=== PATIENT | male | born 1960 | race Caucasian/White ===

== ENCOUNTER 2017-12-20 13:41 | Inpatient (IN) | payer MEDICARE ==
[2017-12-20 13:41] VITALS: BMI 51.5
[2017-12-20] MEDS ORDERED: Albuterol-Ipratrop 3 mg / 0.5 (3 ml) UD INH STA ×2 (14:22→23:13)
[2017-12-20] MEDS ORDERED: Albuterol-Ipratrop 3 mg / 0.5 (3 ml) UD ONE (15:19)
[2017-12-20] MEDS ORDERED: Magnesium Sulfate 1 gm in D5W 1 GM/100 ML BAG IVPB ONE ×2 (15:19→15:35)
[2017-12-20 15:21] LABS: EOS # 0.1 K/uL (0.0-0.7); MONO # 0.4 K/uL (0.0-0.8)
[2017-12-20 15:23] LABS: B-TYPE NATRIURETIC PEPTIDE 7180 pg/mL (0-900)
[2017-12-20] MEDS: Magnesium Sulfate 1 gm in D5W 1 GM/100 ML BAG IVPB SCH (15:23)
[2017-12-20 15:25] LABS: ALB/GLOB RATIO 1.1 (1.0-2.1); ALBUMIN 3.2 g/dL (3.5-5.0); ALT/SGPT 32 U/L (21-72); AST/SGOT 30 U/L (17-59); BLOOD UREA NITROGEN 26 mg/dL (9-20); CALCIUM 8.3 mg/dl (8.6-10.4); GFR NON-AFRICAN AMERICAN > 60
[2017-12-20 15:45] LABS: BASO % 0.6 % (0.0-2.0); MONO % 8.5 % (0.0-10.0)
[2017-12-20 15:47] LABS: LYMPH % 19.2 % (20.0-40.0); MEAN CORPUSCULAR HEMOGLOBIN 22.8 pg (27.0-31.0); MEAN CORPUSCULAR HGB CONC 28.1 g/dL (33.0-37.0); MEAN PLATELET VOLUME 9.4 fL (7.2-11.7); NEUT % 69.2 % (50.0-75.0); RBC 6.17 Mil/uL (4.40-5.90); RED CELL DISTRIBUTION WIDTH 23.5 % (11.5-14.5); WHITE BLOOD COUNT 5.3 K/uL (4.8-10.8)
[2017-12-20 15:48] LABS: EOS % 2.5 % (0.0-4.0); MEAN CELL VOLUME 80.8 fL (80.0-94.0); NEUT # 3.6 K/uL (1.8-7.0); NRBC % 0.2 % (0.0-2.0)
--- NOTE | 2017-12-20 16:04 | RAD ---
HISTORY: cough r/o infiltrate COMPARISON: Chest x-ray performed 10/11/17 TECHNIQUE: Chest, one view. FINDINGS: Examination limited by habitus. LUNGS: Mild pulmonary venous congestion. No focal consolidation. Please note that chest x-ray has limited sensitivity for the detection of pulmonary masses. PLEURA: No significant pleural effusion identified. No definite pneumothorax . CARDIOVASCULAR: Cardiomegaly with CTR approximately 23.3/33.5. OSSEOUS STRUCTURES: No acute osseous abnormality identified. VISUALIZED UPPER ABDOMEN: Unremarkable. OTHER FINDINGS: None. IMPRESSION: Limited study. Marked cardiomegaly. Mild pulmonary venous congestion.
[2017-12-20] MEDS ORDERED: Iodixanol 320 mg/ml 150 ml Bottle IV ONE (16:21)
--- NOTE | 2017-12-20 17:15 | CT ---
Date of service: 12/20/2017 CTA chest PE protocol Indication: Shortness of breath, rule out PE Technique: Contiguous axial images were obtained through the chest with intravenous contrast enhancement. Sagittal and coronal reconstructions were generated and reviewed. This CT exam was performed using 1 or more of the following dose reduction techniques: Automated exposure control, adjustment of the MAA and/or kV according to patient size, and/or use of iterative reconstruction technique. IV contrast: Radiation dose (DLP): 591.23 MGy-cm. Comparison: Chest x-ray performed earlier the same day Findings: Examination markedly limited by habitus. Visualized portions of the inferior thyroid gland appear unremarkable. The mediastinal and hilar vascular structures appear within normal limits. Cardiomegaly. Correlate for pulmonary artery hypertension as the pulmonary artery is enlarged with main pulmonary artery trunk measuring approximately 5 cm in transverse dimension. There is suboptimal opacification of the pulmonary arteries limiting evaluation for pulmonary embolus. Given this limitation, there are no visible intraluminal filling defects within the central pulmonary arteries to suggest central pulmonary embolism. No focal consolidation. No pleural effusion. No pneumothorax. Limited visualized portions of the upper abdomen appear grossly unremarkable. Degenerative changes of the spine. Impression: Examination limited by habitus. Cardiomegaly. Correlate for pulmonary artery hypertension as the pulmonary artery is enlarged with main pulmonary artery trunk measuring approximately 5 cm in transverse dimension. There is suboptimal opacification of the pulmonary arteries limiting evaluation for pulmonary embolus. Given this limitation, there are no visible intraluminal filling defects within the central pulmonary arteries to suggest central pulmonary embolism.
--- NOTE | 2017-12-20 18:12 | C.PDOC ---
History Of Present Illness 57-year-old male, PMHx includes COPD, CHF, presents to the emergency department with complaints of productive cough with yellow sputum ongoing x3 days associated with chills and increased swelling in both feet. Patient also has a subjective fever. Patient denies any nausea/vomiting, chest pain, back pain or any other associated symptoms. Of note, pt is home O2 dependent. Chief Complaint (Nursing): Shortness Of Breath History Per: Patient, Family History/Exam Limitations: no limitations Onset/Duration Of Symptoms: Days Current Symptoms Are (Timing): Still Present Past Medical History Reviewed: Historical Data, Nursing Documentation, Vital Signs Vital Signs: Last Vital Signs Temp 98.1 F 12/20/17 14:01 Pulse 59 L 12/20/17 14:01 Resp 21 12/20/17 14:01 BP 107/55 L 12/20/17 14:01 Pulse Ox 93 L 12/20/17 14:01 - Medical History PMH: Asthma, Colonic Polyps, Gastritis, HTN, Sleep Apnea (Uses CPAP) Denies: Chronic Kidney Disease Surgical History: Endoscopy - [facility] Procedures CORONAR ARTERIOGR-2 CATH (12/16/13) ENDOSC POLYPECTOMY OF LG INTEST (04/10/14) ESOPHAGOGASTRODUODENOSCOPY [EGD] W/CLOSED BIOPSY (04/10/14) LEFT HEART CARDIAC CATH (12/16/13) LT HEART ANGIOCARDIOGRAM (12/16/13) Family History: States: No Known Family Hx - Social History Hx Tobacco Use: No Hx Alcohol Use: Yes Hx Substance Use: No - Immunization History Hx Tetanus Toxoid Vaccination: No Hx Influenza Vaccination: Yes Hx Pneumococcal Vaccination: Yes Review Of Systems Constitutional: Positive for: Fever Respiratory: Positive for: Cough, Shortness of Breath, Sputum Gastrointestinal: Negative for: Vomiting Musculoskeletal: Negative for: Back Pain Neurological: Negative for: Weakness, Numbness, Headache, Dizziness Physical Exam - Physical Exam Appears: Non-toxic, No Acute Distress, Other (Morbidly obese) Skin: Warm, Dry, No Rash Head: Atraumatic, Normacephalic Eye(s): bilateral: Normal Inspection, PERRL, EOMI Nose: Normal Oral Mucosa: Moist Lips: Normal Appearing Neck: Normal ROM Cardiovascular: Rhythm Regular, Murmur (systolic) Respiratory: No Accessory Muscle Use, Rales (bases), Wheezing (B/L) Gastrointestinal/Abdominal: Soft, No Tenderness Back: Normal Inspection Extremity: Pedal Edema (B/L, chronic), Other (chronic venous stasis changes) Pulses: Left Dorsalis Pedis: Normal, Right Dorsalis Pedis: Normal Neurological/Psych: Oriented x3, Normal Speech ED Course And Treatment - Laboratory Results Result Diagrams: 12/20/17 14:50 12/20/17 14:50 ECG Rhythm: R BBB ECG Interpretation: No Acute Changes Interpretation Of ECG: Right Bolivar Deviation Rate From EC O2 Sat by Pulse Oximetry: 93 Medical Decision Making Medical Decision Making: CT Chest, EKG, Bloodwork and chest x-ray ordered and reviewed. Pt treated with Lasix, Mag-Sulfate, Solumedrol and Duoneb. Case discussed with Dr Sylvester, who admits for Dr. Cespedes, states he will admit pt under his service. Disposition - Disposition Disposition Time: 17:30 Condition: STABLE - Clinical Impression Clinical Impression: CHF exacerbation, COPD exacerbation - Scribe Statement The provider has reviewed the documentation as recorded by the Scribe (Nabeel Campos) Provider Attestation: All medical record entries made by the Scribe were at my direction and personally dictated by me. I have reviewed the chart and agree that the record accurately reflects my personal performance of the history, physical exam, medical decision making, and the department course for this patient. I have also personally directed, reviewed, and agree with the discharge instructions and disposition.
[2017-12-20] MEDS ORDERED: Moxifloxacin IV 400mg/250ml NS 400 MG/250 ML BAG IVPB SCH (20:15)
[2017-12-20 20:39] LABS: ABG ALLEN TEST POS; ARTERIAL BLOOD GAS HCO3 22.8 mmol/L (21-28); ARTERIAL BLOOD GAS O2 SAT 89.3 % (95-98); ARTERIAL BLOOD GAS PCO2 70 mm/Hg (35-45); ARTERIAL BLOOD GAS PO2 60 mm/Hg (80-100); ARTERIAL BLOOD GAS TCO2 29.5 mmol/L (22-28)
[2017-12-20] MEDS ORDERED: Moxifloxacin IV 400mg/250ml NS 400 MG/250 ML BAG IVPB ONE (21:49)
[2017-12-20] MEDS: Moxifloxacin IV 400mg/250ml NS 400 MG/250 ML BAG IVPB SCH (22:14)
[2017-12-21] MEDS ORDERED: MethylPREDNISolone 40 mg Vial ONE (00:18)
[2017-12-21 01:06] LABS: ARTERIAL BLOOD GAS HCO3 32.7 mmol/L (21-28); ARTERIAL BLOOD GAS HEMOGLOBIN 14.4 g/dL (11.7-17.4); ARTERIAL BLOOD GAS PCO2 85 mm/Hg (35-45); ARTERIAL BLOOD GAS PH 7.29 (7.35-7.45); ARTERIAL BLOOD GAS PO2 53 mm/Hg (80-100); ARTERIAL BLOOD GAS TCO2 43.5 mmol/L (22-28)
[2017-12-21] MEDS: Albuterol-Ipratrop 3 mg / 0.5 (3 ml) UD INH SCH ×4 (01:18→20:37)
[2017-12-21 03:00] LABS: ABG ALLEN TEST POS; ARTERIAL BLOOD GAS HCO3 33.8 mmol/L (21-28); ARTERIAL BLOOD GAS O2 SAT 82.8 % (95-98); ARTERIAL BLOOD GAS PCO2 97 mm/Hg (35-45); ARTERIAL BLOOD GAS PH 7.26 (7.35-7.45); ARTERIAL BLOOD GAS PO2 48 mm/Hg (80-100); ARTERIAL BLOOD GAS TCO2 46.5 mmol/L (22-28)
[2017-12-21 03:57] LABS: BASO % 0.2 % (0.0-2.0); LYMPH # 0.2 K/uL (1.0-4.3); MEAN CORPUSCULAR HGB CONC 27.7 g/dL (33.0-37.0); MEAN PLATELET VOLUME 9.8 fL (7.2-11.7); MONO % 0.8 % (0.0-10.0)
[2017-12-21 04:43] LABS: MEAN CELL VOLUME 81.3 fL (80.0-94.0); MEAN CORPUSCULAR HEMOGLOBIN 22.6 pg (27.0-31.0); NEUT # 3.5 K/uL (1.8-7.0); NRBC % 0.5 % (0.0-2.0); PLATELET COUNT 105 K/uL (130-400); WHITE BLOOD COUNT 3.7 K/uL (4.8-10.8)
[2017-12-21 04:49] LABS: ALB/GLOB RATIO 1.1 (1.0-2.1); ALBUMIN 3.2 g/dL (3.5-5.0); ALT/SGPT 32 U/L (21-72); AST/SGOT 25 U/L (17-59); BLOOD UREA NITROGEN 23 mg/dL (9-20); CALCIUM 8.1 mg/dl (8.6-10.4); GFR NON-AFRICAN AMERICAN > 60
[2017-12-21 05:01] LABS: HEMOGLOBIN 14.2 g/dL (12.0-18.0)
[2017-12-21] MEDS: MethylPREDNISolone 40 mg Vial IVP SCH ×4 (05:30→21:40)
[2017-12-21 06:33] LABS: ABG ALLEN TEST POS; ARTERIAL BLOOD GAS HCO3 35.4 mmol/L (21-28); ARTERIAL BLOOD GAS O2 SAT 96.4 % (95-98); ARTERIAL BLOOD GAS PCO2 101 mm/Hg (35-45); ARTERIAL BLOOD GAS PH 7.26 (7.35-7.45); ARTERIAL BLOOD GAS PO2 84 mm/Hg (80-100); ARTERIAL BLOOD GAS TCO2 48.4 mmol/L (22-28)
[2017-12-21 08:15] LABS: ANISOCYTOSIS SLIGHT; LYMPHOCYTE 10 % (20-40); MONOCYTE 1 % (0-10); NEUTROPHIL 89 % (50-75); PLATELET ESTIMATE DECREASED (NORMAL); TOTAL CELLS COUNTED 100
[2017-12-21 08:16] LABS: HYPOCHROMIC SLIGHT; OVALOCYTES SLIGHT; POLYCHROMIC SLIGHT
--- NOTE | 2017-12-21 08:38 | RAD ---
Date of service: 12/21/2017 HISTORY: CHF COMPARISON: 12/20/2017. FINDINGS: LUNGS: The lungs are clear. PLEURA: No significant pleural effusion identified, no pneumothorax apparent. CARDIOVASCULAR: Again seen is severe cardiomegaly. OSSEOUS STRUCTURES: No significant abnormalities. VISUALIZED UPPER ABDOMEN: Normal. OTHER FINDINGS: None. IMPRESSION: No active pulmonary disease. Severe cardiomegaly.
--- NOTE | 2017-12-21 13:14 | CP.PCM.HP ---
<Aaron Faustin - Last Filed: 12/21/17 19:08> History of Present Illness - History of Present Illness History of Present Illness: HPI 57-year-old male, PMHx includes COPD, CHF, presents to the emergency department with complaints of productive cough with yellow sputum ongoing x3 days associated with chills and increased swelling in both feet. Patient also has a subjective fever. Patient denies any nausea/vomiting, chest pain, back pain or any other associated symptoms. Of note, pt is home O2 dependent. Pt recently hospitalized in for COPD excarebation PMH: PE, HTN, Asthma, Morbid Obesity PSH: Lap band 2009, colonoscopy 2013 FH: dad stroke, mom PE SH: denies smoking drinking or drug use Present on Admission - Present on Admission Any Indicators Present on Admission: Yes History of DVT/PE: Yes Review of Systems - Hematologic/Lymphatic Additional comments: Constitutional: Positive for: Fever Respiratory: Positive for: Cough, Shortness of Breath, Sputum Gastrointestinal: Negative for: Vomiting Musculoskeletal: Negative for: Back Pain Neurological: Negative for: Weakness, Numbness, Headache, Dizziness Past Patient History - Past Medical History & Family History Past Medical History?: Yes - Past Social History Smoking Status: Unknown If Ever Smoked - CARDIAC Hx Cardiac Disorders: Yes Hx Angina: No Hx Atrial Fibrillation: Yes (On Pradaxa) Hx Cardia Arrhythmia: No Hx Circulatory Problems: No Hx Congestive Heart Failure: Yes Hx Heart Attack: No Hx Heart Murmur: No Hx Heart Transplant: No Hx Hypercholesterolemia: No Hx Hypertension: Yes Hx Hypotension: No Hx Internal Defibrillator: No Hx Mitral Valve Prolapse: No Hx Pacemaker: No Hx Peripheral Edema: Yes Hx Peripheral Vascular Disease: No - PULMONARY Hx Respiratory Disorders: Yes Hx Asthma: Yes Hx Bronchitis: No Hx Chronic Obstructive Pulmonary Disease (COPD): Yes Hx Emphysema: No Hx Lung Cancer: No Hx Pneumonia: No Hx Pulmonary Edema: No Hx Pulmonary Embolism: Yes Hx Respiratory Aspiration: No Hx Respiratory Tract Infection: No Hx Sleep Apnea: Yes (Uses oxygen at home) Hx Tuberculosis: No - NEUROLOGICAL Hx Neurological Disorder: No Hx Alzheimer's Disease: No HX Cerebrovascular Accident: No Hx Dementia: No Hx Dizziness: No Hx Meningitis: No Hx Migraine: No Hx Multiple Sclerosis: No Hx Paralysis: No Hx Parkinson's Disease: No Hx Seizures: No Hx Syncope: No Hx Transient Ischemic Attacks (TIA): No Hx Vertigo: No - HEENT Hx HEENT Problems: No Hx Blind: No Hx Cataracts: No Hx Deafness: No Hx Difficulty Chewing: No Hx Epistaxis: No Hx Glaucoma: No Hx Macular Degeneration: No Hx Sinusitis: No - RENAL Hx Chronic Kidney Disease: No Hx Dialysis: No Hx Kidney Stones: No Hx Neurogenic Bladder: No Hx Pyelonephritis: No Hx Renal (Kidney) Cancer: No Hx Renal Failure: No - ENDOCRINE/METABOLIC Hx Endocrine Disorders: No Hx Adrenal Cancer: No Hx Diabetes Insipidus: No Hx Diabetes Mellitus Type 1: No Hx Diabetes Mellitus Type 2: No Hx Hyperthyroidism: No Hx Hypothyroidism: No Hx Systemic Lupus Erythematosus: No - HEMATOLOGICAL/ONCOLOGICAL Hx Blood Disorders: No Hx AIDS: No Hx Anemia: No Hx Blood Transfusions: No Hx Blood Transfusion Reaction: No Hx Bruising: No Hx Cancer: No Hx Chemotherapy: No Hx Cirrhosis: No Hx Gum Bleeding: No Hx Hemophilia: No Hx Hepatitis A: No Hx Hepatitis B: No Hx Hepatitis C: No Hx Human Immunodeficiency Virus (HIV): No Hx Leukemia: No Hx Metastesis: No Hx Shingles: No Hx Sickle Cell Disease: No Hx Unexplained Bleeding: No Hx von Willebrand's Disease: No - INTEGUMENTARY Hx Dermatological Problems: No Hx Basil Cell: No Hx Moraes: No Hx Cellulitis: No Hx Eczema: No Hx Melanoma: No Hx Psoriasis: No Hx Squamous Cell: No - MUSCULOSKELETAL/RHEUMATOLOGICAL Hx Musculoskeletal Disorders: No Hx Arthritis: No Hx Back Pain: No Hx Degenerative Joint Disease: No Hx Falls: No Hx Fractures: No Hx Gout: No Hx Herniated Disk: No Hx Myasthenia Gravis: No Hx Osteoarthritis: No Hx Osteomyelitis: No Hx Osteoporosis: No Hx Rhabdomyolysis: No Hx Rheumatoid Arthritis: No Hx Spinal Stenosis: No Hx Unsteady Gait: Yes - GASTROINTESTINAL Hx Gastrointestinal Disorders: Yes Hx Bowel Surgery: No Hx Clostridium Difficile: No Hx Colitis: No Hx Colostomy: No Hx Constipation: No Hx Crohn's Disease: No Hx Diarrhea: No Hx Diverticulitis: No Hx Esophageal Varices: No Hx Fatty Liver Disease: No Hx Gall Bladder Disease: No Hx Gastritis: Yes Hx Gastroesophageal Reflux: No Hx Hemorrhoids: No Hx Ileostomy: No Hx Irritable Bowel: No Hx Liver Failure: No Hx Nausea: No Hx Pancreatitis: No HX Swallowing Problems: No Hx Ulcer: No Hx Vomiting: No Other/Comment: Colonic polyps, unsuccessful banding procedure, hiatal hernia - GENITOURINARY/GYNECOLOGICAL Hx Genitourinary Disorders: No Hx Bladder Cancer: No Hx Bladder Stone: No Hx Hematuria: No Hx Incontinence: No Hx Prostate Cancer: No Hx Prostate Problems: No Hx Reproductive Disorders: No Hx Sexually Transmitted Disorders: No Hx Urinary Tract Infection: No - PSYCHIATRIC Hx Psychophysiologic Disorder: No Hx Anxiety: No Hx Bipolar Disorder: No Hx Depression: No Hx Emotional Abuse: No Hx Hallucinations: No Hx Panic Symptoms: No Hx Paranoia: No Hx Post Traumatic Stress Disorder: No Hx Psychosis: No Hx Physical Abuse: No Hx Schizophrenia: No Hx Sexual Abuse: No Hx Substance Use: No - SURGICAL HISTORY Hx Surgeries: Yes Hx Abdominal Aortic Aneurysm Repair: No Hx Amputation: No Hx Angiogram: No Hx Angioplasty: No Hx Appendectomy: No Hx Arteriovenous Shunt: No Hx Arthroscopy: No Hx Bile Duct Stent: No Hx Breast Biopsy: No Hx Cataract Extraction: No Hx Cardiac Catheterization: Yes Hx Carotid Endarterectomy: No Hx Section: No Hx Cholecystectomy: No Hx Coronary Artery Bypass Graft: No Hx Dilation and Curettage: No Hx Eye Surgery: No Hx Femoral-Popliteal Bypass Graft: No Hx Gastric Bypass Surgery: Yes (UNSUCCESSFUL BANDING) Hx Herniorrhaphy: No Hx Hysterectomy: No Hx Joint Replacement: No Hx Kidney Transplant: No Hx Liver Transplant: No Hx Mastectomy: No Hx Musculoskeletal Surgery: No Hx Open Heart Surgery: No Hx Open Reduction Internal Fixation: No Hx Orthopedic Surgery: No Hx Parathyroidectomy: No Hx Penile Implant: No Hx Pulmonary Surgery: No Hx Splenectomy: No Hx Thyroidectomy: No Hx Tonsillectomy: No Hx Tubal Ligation: No Hx Valve Replacement: No Hx Vascular Surgery: No Hx Vascular Access Device: No - ANESTHESIA Hx Anesthesia: Yes Hx Anesthesia Reactions: No Hx Malignant Hyperthermia: No Meds Allergies/Adverse Reactions: Allergies Allergy/AdvReac Type Severity Reaction Status Date / Time Penicillins Allergy URTICARIA Verified 12/20/17 14:06 Physical Exam - Additional Findings Additional findings: Appears: Non-toxic, No Acute Distress, Other (Morbidly obese) Skin: Warm, Dry, No Rash Head: Atraumatic, Normacephalic Eye(s): bilateral: Normal Inspection, PERRL, EOMI Nose: Normal Oral Mucosa: Moist Lips: Normal Appearing Neck: Normal ROM Cardiovascular: Rhythm Regular, Murmur (systolic) Respiratory: No Accessory Muscle Use, Rales (bases), Wheezing (B/L) Gastrointestinal/Abdominal: Soft, No Tenderness Back: Normal Inspection Extremity: Pedal Edema (B/L, chronic), Other (chronic venous stasis changes) Pulses: Left Dorsalis Pedis: Normal, Right Dorsalis Pedis: Normal Neurological/Psych: Oriented x3, Normal Speech Results - Vital Signs Recent Vital Signs: Last Vital Signs Temp 96.8 F L 12/21/17 12:00 Pulse 51 L 12/21/17 12:00 Resp 19 12/21/17 12:00 BP 99/54 L 12/21/17 12:00 Pulse Ox 94 L 12/21/17 12:00 - Labs Result Diagrams: 12/21/17 03:52 12/21/17 03:52 Labs: Laboratory Results - last 24 hr 12/20/17 12/20/17 12/20/17 01:00 14:50 14:50 WBC 5.3 RBC 6.17 H Hgb 14.0 Hct 49.9 MCV 80.8 D MCH 22.8 L MCHC 28.1 L RDW 23.5 H Plt Count 113 L MPV 9.4 Neut % (Auto) 69.2 Lymph % (Auto) 19.2 L Dolores % (Auto) 8.5 Eos % (Auto) 2.5 Baso % (Auto) 0.6 Neut # (Auto) 3.6 Lymph # (Auto) 1.0 Dolores # (Auto) 0.4 Eos # (Auto) 0.1 Baso # (Auto) 0.0 Neutrophils % (Manual) Lymphocytes % (Manual) Monocytes % (Manual) Differential Comment Platelet Estimate Polychromasia Hypochromasia (manual) Anisocytosis (manual) Ovalocytes Puncture Site Rb pCO2 85 H* pO2 53 L HCO3 32.7 H ABG pH 7.29 L ABG Total CO2 43.5 H ABG O2 Saturation 88.0 L ABG Base Excess 10.4 H ABG Hemoglobin 14.4 ABG Carboxyhemoglobin 2.8 H POC ABG HHb (Measured) 11.5 H ABG Methemoglobin 1.0 Anton Test Na ABG Potassium A-a O2 Difference 162.0 Respiratory Index 3.1 Hgb O2 Saturation 84.7 L Glucose Lactate Liter Flow 25.0 Vent Mode High flow vapotherm FiO2 45.0 Inspiratory BiPAP Expiratory BiPAP Crit Value Called To Manisha mckeon/rn Crit Value Called By Leodan mcginnis/rt Crit Value Read Back Y Blood Gas Notified Time 110 Sodium 145 Potassium 4.5 Chloride 95 L Carbon Dioxide 40 H* Anion Gap 14 BUN 26 H Creatinine 1.1 Est GFR ( Amer) > 60 Est GFR (Non-Af Amer) > 60 POC Glucose (mg/dL) Random Glucose 79 Calcium 8.3 L Phosphorus Magnesium Total Bilirubin 1.6 H AST 30 ALT 32 Alkaline Phosphatase 59 Troponin I 0.0250 NT-Pro-B Natriuret Pep 7180 H Total Protein 6.2 L Albumin 3.2 L Globulin 3.0 Albumin/Globulin Ratio 1.1 Arterial Blood Potassium Influenza Typ A,B (EIA) 12/20/17 12/20/17 12/20/17 14:50 20:25 23:07 WBC RBC Hgb Hct MCV MCH MCHC RDW Plt Count MPV Neut % (Auto) Lymph % (Auto) Dolores % (Auto) Eos % (Auto) Baso % (Auto) Neut # (Auto) Lymph # (Auto) Dolores # (Auto) Eos # (Auto) Baso # (Auto) Neutrophils % (Manual) Lymphocytes % (Manual) Monocytes % (Manual) Differential Comment Platelet Estimate Polychromasia Hypochromasia (manual) Anisocytosis (manual) Ovalocytes Puncture Site Lr pCO2 70 H pO2 60 L HCO3 22.8 ABG pH 7.20 L ABG Total CO2 29.5 H ABG O2 Saturation 89.3 L ABG Base Excess -2.3 L ABG Hemoglobin ABG Carboxyhemoglobin POC ABG HHb (Measured) ABG Methemoglobin Anton Test Pos ABG Potassium 3.0 L A-a O2 Difference Respiratory Index Hgb O2 Saturation Glucose 99 Lactate 0.8 Liter Flow 5.0 Vent Mode FiO2 Inspiratory BiPAP Expiratory BiPAP Crit Value Called To Crit Value Called By Crit Value Read Back Blood Gas Notified Time Sodium 148.0 Potassium Chloride 113.0 H Carbon Dioxide Anion Gap BUN Creatinine Est GFR ( Amer) Est GFR (Non-Af Amer) POC Glucose (mg/dL) 137 H Random Glucose Calcium Phosphorus Magnesium Total Bilirubin AST ALT Alkaline Phosphatase Troponin I NT-Pro-B Natriuret Pep Total Protein Albumin Globulin Albumin/Globulin Ratio Arterial Blood Potassium 3.0 L Influenza Typ A,B (EIA) Negative for flu a/b 12/21/17 12/21/17 12/21/17 02:50 03:52 03:52 WBC 3.7 L RBC 6.30 H Hgb 14.2 Hct 51.3 H MCV 81.3 MCH 22.6 L MCHC 27.7 L RDW 23.0 H Plt Count 105 L MPV 9.8 Neut % (Auto) 94.0 H Lymph % (Auto) 5.0 L Dolores % (Auto) 0.8 Eos % (Auto) 0.0 Baso % (Auto) 0.2 Neut # (Auto) 3.5 Lymph # (Auto) 0.2 L Dolores # (Auto) 0.0 Eos # (Auto) 0.0 Baso # (Auto) 0.0 Neutrophils % (Manual) 89 H Lymphocytes % (Manual) 10 L Monocytes % (Manual) 1 Differential Comment Platelet Estimate Decreased L Polychromasia Slight Hypochromasia (manual) Slight Anisocytosis (manual) Slight Ovalocytes Slight Puncture Site Rr pCO2 97 H* pO2 48 L HCO3 33.8 H ABG pH 7.26 L ABG Total CO2 46.5 H ABG O2 Saturation 82.8 L ABG Base Excess 12.1 H ABG Hemoglobin ABG Carboxyhemoglobin POC ABG HHb (Measured) ABG Methemoglobin Anton Test Pos ABG Potassium 4.5 A-a O2 Difference 152.0 Respiratory Index 3.2 Hgb O2 Saturation Glucose 109 Lactate 0.8 Liter Flow 30.0 Vent Mode High flow/vapother FiO2 45.0 Inspiratory BiPAP Expiratory BiPAP Crit Value Called To Dr castillo Crit Value Called By Leodan mcginnis/rt Crit Value Read Back Y Blood Gas Notified Time 305 Sodium 142.0 144 Potassium 5.2 Chloride 104.0 94 L Carbon Dioxide 41 H* Anion Gap 14 BUN 23 H Creatinine 1.1 Est GFR ( Amer) > 60 Est GFR (Non-Af Amer) > 60 POC Glucose (mg/dL) Random Glucose 120 H Calcium 8.1 L Phosphorus 5.6 H Magnesium 1.6 Total Bilirubin 1.2 AST 25 ALT 32 Alkaline Phosphatase 56 Troponin I NT-Pro-B Natriuret Pep Total Protein 6.1 L Albumin 3.2 L Globulin 2.9 Albumin/Globulin Ratio 1.1 Arterial Blood Potassium 4.5 Influenza Typ A,B (EIA) 12/21/17 06:25 WBC RBC Hgb Hct MCV MCH MCHC RDW Plt Count MPV Neut % (Auto) Lymph % (Auto) Dolores % (Auto) Eos % (Auto) Baso % (Auto) Neut # (Auto) Lymph # (Auto) Dolores # (Auto) Eos # (Auto) Baso # (Auto) Neutrophils % (Manual) Lymphocytes % (Manual) Monocytes % (Manual) Differential Comment Platelet Estimate Polychromasia Hypochromasia (manual) Anisocytosis (manual) Ovalocytes Puncture Site Rr pCO2 101 H* pO2 84 HCO3 35.4 H ABG pH 7.26 L ABG Total CO2 48.4 H ABG O2 Saturation 96.4 ABG Base Excess 13.5 H ABG Hemoglobin ABG Carboxyhemoglobin POC ABG HHb (Measured) ABG Methemoglobin Anton Test Pos ABG Potassium 5.6 H A-a O2 Difference 146.0 Respiratory Index 1.7 Hgb O2 Saturation Glucose 117 H Lactate 0.9 Liter Flow Vent Mode Bipap FiO2 50.0 Inspiratory BiPAP 16 Expiratory BiPAP 6 Crit Value Called To Dr castillo Crit Value Called By Leodan mcginnis/rt Crit Value Read Back Y Blood Gas Notified Time 635 Sodium 140.0 Potassium Chloride 100.0 Carbon Dioxide Anion Gap BUN Creatinine Est GFR ( Amer) Est GFR (Non-Af Amer) POC Glucose (mg/dL) Random Glucose Calcium Phosphorus Magnesium Total Bilirubin AST ALT Alkaline Phosphatase Troponin I NT-Pro-B Natriuret Pep Total Protein Albumin Globulin Albumin/Globulin Ratio Arterial Blood Potassium 5.6 H Influenza Typ A,B (EIA) Assessment & Plan - Assessment and Plan (Free Text) Assessment: 54yo M pmhx of PE and COPD, on BiPAP Plan: Neuro: -AAOx3 -monitor mental status -PT/OT Pulm: Obesity Hypoventillation syndrome/ hypercapnic resp failure -Maintain spO2 >92% -BiPAP -afternoon ABG CO2 levels 62, down from 101 this AM -avoid sedation -monitor saturation O2 90-92% COPD -Duonebs Rq6 -Salumedrol CardioVasc: Chronic Diastolic HF/ CAD -elevated proBNP -Home Lisinopril on hold -pending ECHO - Lasix 40 BID - avoid overload -Heriberto LE edematous 3 days Heme: -Monitor H/H -Hx of PE -on predaxa Renal: -monitor I&O -monitor and repleat electrolytes Endo: -Maintain euglycemia 140-180 blood sugar -check post prandial glucose GI: -Home dose Pepcid -HHD ID: -Afebrile -no leukocytosis DVT PPX: -SCDs -home dose predaxa -home dose pepcid -nutrition consult for weight loss <Leandro Cummings - Last Filed: 12/23/17 11:44> Results - Vital Signs Recent Vital Signs: Last Vital Signs Temp 97.1 F L 12/23/17 08:00 Pulse 52 L 12/23/17 08:20 Resp 23 12/23/17 08:00 BP 136/79 12/23/17 07:59 Pulse Ox 88 L 12/23/17 08:00 - Labs Result Diagrams: 12/23/17 06:36 12/23/17 08:06 Labs: Laboratory Results - last 24 hr 12/23/17 12/23/17 12/23/17 05:43 06:36 08:06 WBC 6.3 RBC 6.31 H Hgb 14.4 Hct 50.6 MCV 80.2 MCH 22.8 L MCHC 28.4 L RDW 23.3 H Plt Count 101 L MPV 9.6 Neut % (Auto) 94.1 H Lymph % (Auto) 4.2 L Dolores % (Auto) 1.5 Eos % (Auto) 0.0 Baso % (Auto) 0.2 Neut # (Auto) 5.9 Lymph # (Auto) 0.3 L Dolores # (Auto) 0.1 Eos # (Auto) 0.0 Baso # (Auto) 0.0 Neutrophils % (Manual) 93 H Band Neutrophils % 1 Lymphocytes % (Manual) 4 L Monocytes % (Manual) 2 Toxic Granulation Present Platelet Estimate Slightly decreased L Large Platelets Present Giant Platelets Present Polychromasia Slight Hypochromasia (manual) Slight Poikilocytosis (manual Slight Anisocytosis (manual) Marked Target Cells Slight Ovalocytes Slight Schistocytes Slight Puncture Site R rad pCO2 81 H* pO2 75 L HCO3 38.0 H ABG pH 7.37 ABG Total CO2 49.3 H ABG O2 Saturation 96.2 ABG Base Excess 16.9 H ABG Hemoglobin 14.3 ABG Carboxyhemoglobin 2.4 H POC ABG HHb (Measured) 3.7 ABG Methemoglobin 0.8 Anton Test Pos A-a O2 Difference 109.0 Respiratory Index 1.5 Hgb O2 Saturation 93.2 L Vent Mode Bipap FiO2 40.0 Inspiratory BiPAP 18 Expiratory BiPAP 9 Crit Value Called To Vee sutton rn Crit Value Called By Kathrine up rt Crit Value Read Back Y Blood Gas Notified Time 559 Sodium 142 Potassium 5.3 H Chloride 90 L Carbon Dioxide 45 H* Anion Gap 12 BUN 30 H Creatinine 1.0 Est GFR ( Amer) > 60 Est GFR (Non-Af Amer) > 60 Random Glucose 124 H Calcium 8.2 L Phosphorus 5.0 H Magnesium 1.8 Total Bilirubin 1.4 H AST 17 ALT 26 Alkaline Phosphatase 43 Total Protein 5.8 L Albumin 2.9 L Globulin 2.9 Albumin/Globulin Ratio 1.0 Assessment & Plan - Assessment and Plan (Free Text) Plan: Patient seen and examined at bedside. Patient on bi-pap. ROS limited as patient on bi-pap vitals reviewed labs reveiwed allergies reviewed medications reviewed A/P -Obesity hypoventilation: will benefit from bi-pap, repeat ABG, avoid hypov entilation -Chronic diastolic heart failure/CAD: continue to monitor, avoid fluid overloaded states, contineu asa, statin and av leanne cleve, continue as per cardiology, -PNA: currently on moxi, switch to oral -COPD: continue bronchodilators and steroids -dvt ppx dabigatran -pud rx protonix -Prognosis guarded as multiple diagnostic tests pending. Patient remains critical cc time 35 minutes - Date & Time Date: 12/21/17 Time: 17:00
[2017-12-21 14:16] LABS: ARTERIAL BLOOD GAS HCO3 36.4 mmol/L (21-28); ARTERIAL BLOOD GAS HEMOGLOBIN 13.8 g/dL (11.7-17.4); ARTERIAL BLOOD GAS PCO2 62 mm/Hg (35-45); ARTERIAL BLOOD GAS PH 7.44 (7.35-7.45); ARTERIAL BLOOD GAS PO2 82 mm/Hg (80-100)
[2017-12-21] MEDS: Magnesium Sulfate 1 gm in D5W 1 GM/100 ML BAG IVPB SCH (21:34)
[2017-12-21] MEDS: Moxifloxacin IV 400mg/250ml NS 400 MG/250 ML BAG IVPB SCH (21:41)
[2017-12-22] MEDS: Albuterol-Ipratrop 3 mg / 0.5 (3 ml) UD INH SCH ×4 (01:14→20:00)
[2017-12-22] MEDS: MethylPREDNISolone 40 mg Vial IVP SCH ×3 (05:40→21:10)
[2017-12-22 06:12] LABS: LYMPH # 0.2 K/uL (1.0-4.3); MONO # 0.1 K/uL (0.0-0.8); WHITE BLOOD COUNT 5.3 K/uL (4.8-10.8)
[2017-12-22 06:24] LABS: BASO % 0.2 % (0.0-2.0); LYMPH % 3.7 % (20.0-40.0); MEAN CELL VOLUME 79.5 fL (80.0-94.0); MEAN CORPUSCULAR HEMOGLOBIN 22.9 pg (27.0-31.0); MEAN CORPUSCULAR HGB CONC 28.8 g/dL (33.0-37.0); MEAN PLATELET VOLUME 9.6 fL (7.2-11.7); MONO % 1.2 % (0.0-10.0); NEUT % 94.9 % (50.0-75.0); NRBC % 0.2 % (0.0-2.0); PLATELET COUNT 109 K/uL (130-400); RBC 6.18 Mil/uL (4.40-5.90); RED CELL DISTRIBUTION WIDTH 22.8 % (11.5-14.5)
[2017-12-22 06:28] LABS: HEMOGLOBIN 14.1 g/dL (12.0-18.0)
[2017-12-22 06:34] LABS: ALB/GLOB RATIO 1.1 (1.0-2.1); ALT/SGPT 27 U/L (21-72); AST/SGOT 21 U/L (17-59); BLOOD UREA NITROGEN 23 mg/dL (9-20); CALCIUM 8.2 mg/dl (8.6-10.4); GFR NON-AFRICAN AMERICAN > 60
--- NOTE | 2017-12-22 08:23 | RAD ---
Date of service: 12/22/2017 HISTORY: COPD COMPARISON: 12/21/2017. FINDINGS: LUNGS: The lungs are well inflated and clear. PLEURA: No significant pleural effusion identified, no pneumothorax apparent. CARDIOVASCULAR: There severe cardiomegaly. OSSEOUS STRUCTURES: No significant abnormalities. VISUALIZED UPPER ABDOMEN: Normal. OTHER FINDINGS: None. IMPRESSION: No acute findings. No interval change.
[2017-12-22 09:10] LABS: LYMPHOCYTE 6 % (20-40); MONOCYTE 1 % (0-10); NEUTROPHIL 93 % (50-75); PLATELET ESTIMATE DECREASED (NORMAL); TOTAL CELLS COUNTED 100
[2017-12-22 09:11] LABS: ANISOCYTOSIS MODERATE; HYPOCHROMIC SLIGHT; POLYCHROMIC SLIGHT; TARGET CELLS SLIGHT
[2017-12-22 09:12] LABS: TOXIC GRANULATION PRESENT
--- NOTE | 2017-12-22 10:41 | CP.PCM.PN ---
Subjective - Date & Time of Evaluation Date of Evaluation: 12/22/17 Time of Evaluation: 10:39 - Subjective Subjective: Progress Note For Dr Sylvester Pt seen and examined at bedside. Pt reports improvement. Pt denies cp sob fc nv Objective - Vital Signs/Intake and Output Vital Signs (last 24 hours): Temp Pulse Resp BP Pulse Ox 97.7 F 54 L 17 126/72 90 L 12/22/17 08:00 12/22/17 10:26 12/22/17 10:00 12/22/17 09:45 12/22/17 10:00 Intake and Output: 12/22/17 12/22/17 06:59 18:59 Intake Total 420 330 Output Total 100 0 Balance 320 330 - Medications Medications: Current Medications Albuterol/Ipratropium (Duoneb 3 Mg/0.5 Mg (3 Ml) Ud) 3 ml INH RQ6 [facility] Last Admin: 12/22/17 08:13 Dose: 3 ml Dabigatran (Pradaxa) 150 mg PO BID [facility] Last Admin: 12/22/17 09:16 Dose: 150 mg Famotidine (Pepcid) 20 mg PO DAILY [facility] Last Admin: 12/22/17 09:16 Dose: 20 mg Moxifloxacin HCl (Avelox Iv 400mg/250ml Ns) 400 mg in 250 mls @ 167 mls/hr IVPB Q24H [facility]; Protocol Last Admin: 12/21/17 21:41 Dose: 167 mls/hr Methylprednisolone (Solu-Medrol) 40 mg IVP Q8 [facility] Last Admin: 12/22/17 05:40 Dose: 40 mg Pneumococcal Polyvalent Vaccine (Pneumovax 23 Vaccine) 0.5 ml IM .ONCE ONE Stop: 12/24/17 02:23 - Labs Labs: 12/22/17 06:08 12/22/17 06:08 - Constitutional Appears: Well, Non-toxic, No Acute Distress - Head Exam Head Exam: ATRAUMATIC, NORMAL INSPECTION - Eye Exam Eye Exam: EOMI, Scleral icterus - ENT Exam ENT Exam: Mucous Membranes Moist - Neck Exam Additional comments: large neck diameter - Respiratory Exam Respiratory Exam: Wheezes - Cardiovascular Exam Cardiovascular Exam: RRR, +S1, +S2 - GI/Abdominal Exam GI & Abdominal Exam: Soft. absent: Guarding, Tenderness - Extremities Exam Extremities Exam: Pedal Edema (heriberto +3) - Neurological Exam Neurological Exam: Alert, Awake, CN II-XII Intact, Oriented x3 - Psychiatric Exam Psychiatric exam: Normal Affect, Normal Mood - Skin Skin Exam: Dry, Normal Color Assessment and Plan - Assessment and Plan (Free Text) Assessment: 54yo M pmhx of PE and COPD, on BiPAP Plan: Neuro: -AAOx3 -monitor mental status -PT/OT Pulm: Obesity Hypoventillation syndrome/ hypercapnic resp failure -Maintain spO2 >92% -BiPAP -last ABG CO2 levels 62, down from 101 this AM -avoid sedation -monitor saturation O2 90-92% COPD -Duonebs Rq6 -Salumedrol CardioVasc: Chronic Diastolic HF/ CAD -elevated proBNP -Home Lisinopril on hold -12/21 ECHO f/u read - Lasix 40 given once - avoid overload -Heriberto LE edematous 4 days Heme: -Monitor H/H -Hx of PE -on predaxa Renal: -monitor I&O -monitor and repleat electrolytes Endo: -Maintain euglycemia 140-180 blood sugar -check post prandial glucose GI: -Home dose Pepcid -HHD ID: -Afebrile -no leukocytosis DVT PPX: -SCDs -home dose predaxa -home dose pepcid -nutrition consult for weight loss
--- NOTE | 2017-12-22 11:17 | PQF ---
PROVIDER RESPONSE TEXT: Patient has no heart failure Hypercapnic respiratory failure REVIEWER QUERY TEXT: Clarification of Clinical Diagnostic Findings Please clarify documentation or clinical relevance for the clinical / diagnostic findings. Acute on Chronic Hypercapniec Respiratory Failure in the setting of COPD Exac, and CHF Exac. requiri ng BIPAP, and Solumedrol IV - Other Explanation. -Unable to Determine The patient's Clinical Indicators include: Clinical Findings: SOB, Cough, Hx of COPD and Obesity w/ Hypoventilation syndrome, Home O2 Dependent , and BIPAP . ABG: ABG: pH= 7.2 pCO2= 85 , 101, HCO3= 32.7 . CXR showing : Marked cardiomegaly. Mil d pulmonary venous congestion. Treatment : BIPAP, O2 supplement , Solumedrol IV, Duoneb Risk Factor: COPD Exac., CHF Exac., Query created by: Judy Dwyer on 12/21/2017 5:15 PM Electronically signed by: Rolanda Sylvester MD 12/22/2017 11:14 AM
--- NOTE | 2017-12-22 14:45 | CARD ---
APPROVED REPORT Date of service: 12/21/2017 EXAM: LIMITED Two-dimensional and M-mode echocardiogram with Doppler and color Doppler. Other Information Quality : Technically LimitedRhythm : INDICATION Dyspnea Congestive Heart Failure COPD RISK FACTORS Hypertension 2D DIMENSIONS IVSd1.1 (0.7-1.1cm)LVDd5.6 (3.9-5.9cm) LVOT Diameter2.3 (1.8-2.4cm)PWd1.1 (0.7-1.1cm) LVDs3.8 (2.5-4.0cm)FS (%) 32.4 % LVEF (%)60.1 (>50%) M-Mode DIMENSIONS Left Atrium (MM)4.76 (2.5-4.0cm)IVSd1.13 (0.7-1.1cm) Aortic Root3.44 (2.2-3.7cm)LVDd6.34 (4.0-5.6cm) Aortic Cusp Exc.1.57 (1.5-2.0cm)PWd1.01 (0.7-1.1cm) FS (%) 33 %LVDs4.23 (2.0-3.8cm) LVEF (%)61 (>50%) Mitral Valve MV E Qchmhpfz78.1cm/sMV A Kkvhttma72.9cm/sE/A ratio0.7 TDI Lateral E' Peak V7.32cm/sMedial E' Peak V6.03cm/sE/Lateral E'9.2 E/Medial E'11.1 Tricuspid Valve TR Peak Oxiikale557dm/sTR Peak Gr.37alYnMSIR02orVf LEFT VENTRICLE The left ventricular function is normal. The left ventricular ejection fraction is within the normal range. There is normal LV segmental wall motion. Transmitral Doppler flow pattern is Grade I-abnormal relaxation pattern. ATRIA The left atrium size is normal. AORTIC VALVE The aortic valve is normal in structure. MITRAL VALVE The mitral valve is normal in structure. TRICUSPID VALVE There is mild to moderate tricuspid regurgitation. Right ventricular systolic pressure is estimated at 50-60 mmHg. <Conclusion> Suboptimal Study The left ventricular function is normal. The left ventricular ejection fraction is within the normal range. There is normal LV segmental wall motion. There is mild to moderate tricuspid regurgitation. Right ventricular systolic pressure is estimated at 50-60 mmHg.
--- NOTE | 2017-12-22 14:53 | CARD ---
APPROVED REPORT Date of service: 12/20/2017 EKG Measurement Heart [id number] <Conclusion> Wide QRS rhythm Right bundle branch block Abnormal ECG
[2017-12-22] MEDS: Moxifloxacin IV 400mg/250ml NS 400 MG/250 ML BAG IVPB SCH (21:10)
[2017-12-23] MEDS: Albuterol-Ipratrop 3 mg / 0.5 (3 ml) UD INH SCH ×4 (01:15→19:30)
[2017-12-23] MEDS: MethylPREDNISolone 40 mg Vial IVP SCH ×2 (05:15→13:16)
[2017-12-23 05:59] LABS: ABG ALLEN TEST POS; ARTERIAL BLOOD GAS HEMOGLOBIN 14.3 g/dL (11.7-17.4); ARTERIAL BLOOD GAS O2 SAT 96.2 % (95-98); ARTERIAL BLOOD GAS PCO2 81 mm/Hg (35-45); ARTERIAL BLOOD GAS PH 7.37 (7.35-7.45); ARTERIAL BLOOD GAS PO2 75 mm/Hg (80-100); ARTERIAL BLOOD GAS TCO2 49.3 mmol/L (22-28)
[2017-12-23 06:44] LABS: HEMOGLOBIN 14.4 g/dL (12.0-18.0); MONO # 0.1 K/uL (0.0-0.8); NRBC % 0.1 % (0.0-2.0)
[2017-12-23 07:35] LABS: BASO % 0.2 % (0.0-2.0); LYMPH # 0.3 K/uL (1.0-4.3); LYMPH % 4.2 % (20.0-40.0); MEAN CELL VOLUME 80.2 fL (80.0-94.0); MEAN CORPUSCULAR HEMOGLOBIN 22.8 pg (27.0-31.0); MEAN CORPUSCULAR HGB CONC 28.4 g/dL (33.0-37.0); MEAN PLATELET VOLUME 9.6 fL (7.2-11.7); MONO % 1.5 % (0.0-10.0); NEUT # 5.9 K/uL (1.8-7.0); NEUT % 94.1 % (50.0-75.0); PLATELET COUNT 101 K/uL (130-400); RBC 6.31 Mil/uL (4.40-5.90); RED CELL DISTRIBUTION WIDTH 23.3 % (11.5-14.5); WHITE BLOOD COUNT 6.3 K/uL (4.8-10.8)
[2017-12-23 08:39] LABS: ALBUMIN 2.9 g/dL (3.5-5.0); ALT/SGPT 26 U/L (21-72); AST/SGOT 17 U/L (17-59); BLOOD UREA NITROGEN 30 mg/dL (9-20); CALCIUM 8.2 mg/dl (8.6-10.4); GFR NON-AFRICAN AMERICAN > 60
[2017-12-23 09:40] LABS: BANDS 1 % (0-2); LYMPHOCYTE 4 % (20-40); MONOCYTE 2 % (0-10); NEUTROPHIL 93 % (50-75); PLATELET ESTIMATE SLIGHTLY DECREASED (NORMAL); TOTAL CELLS COUNTED 100
[2017-12-23 09:42] LABS: ANISOCYTOSIS MARKED; GIANT PLATELETS PRESENT; HYPOCHROMIC SLIGHT; LARGE PLATELETS PRESENT; OVALOCYTES SLIGHT; POIKILOCYTOSIS SLIGHT
[2017-12-23 09:43] LABS: POLYCHROMIC SLIGHT; SCHISTOCYTES SLIGHT; TARGET CELLS SLIGHT; TOXIC GRANULATION PRESENT
--- NOTE | 2017-12-23 10:12 | RAD ---
HISTORY: dyspnea COMPARISON: Chest x-ray performed 12/22/17 TECHNIQUE: Chest, one view. FINDINGS: Examination limited by habitus and hypoinflation. Patient's chin obscures evaluation of the lung apices. LUNGS: Hypoinflation. Mild pulmonary venous congestion. No focal consolidation. Please note that chest x-ray has limited sensitivity for the detection of pulmonary masses. PLEURA: No significant pleural effusion identified. No definite pneumothorax . CARDIOVASCULAR: Severe cardiomegaly. OSSEOUS STRUCTURES: Degenerative changes. VISUALIZED UPPER ABDOMEN: Unremarkable. OTHER FINDINGS: None. IMPRESSION: Severe cardiomegaly. Mild pulmonary venous congestion. Hypoinflation.
[2017-12-23] MEDS: Moxifloxacin IV 400mg/250ml NS 400 MG/250 ML BAG IVPB SCH (21:08)
[2017-12-24] MEDS: Albuterol-Ipratrop 3 mg / 0.5 (3 ml) UD INH SCH ×6 (01:37→19:18)
[2017-12-24] MEDS ORDERED: Pneumococcal 23-Valent Vaccine IM ONE ×2 (02:22→10:00)
[2017-12-24] MEDS: MethylPREDNISolone 40 mg Vial IVP SCH (10:24)
--- NOTE | 2017-12-24 17:59 | CP.PCM.PN ---
Subjective - Date & Time of Evaluation Date of Evaluation: 12/24/17 Time of Evaluation: 17:59 - Subjective Subjective: Patient with a history of hypertension, bronchial asthma, morbid obesity history of suspected perming embolism in the past, on anticoagulation on home oxygen, being seen by elevator service technician, gas pump attendant in the past admitted with wo rsening shortness of breath, and also CO2 narcosis, acute on chronic hypercapnic respiratory failure. Patient is currently more awake and responding. He is on BiPAP on and off. He is alert today. He is easily sleeping otherwise. But waking up easily. On examination: Bilateral chest air entry good noted Regular heart sound Pedal edema noted No recent labs today Current medications reviewed On antegrade ablation. We'll start the patient again on Lasix IV in tomorrow Continue the oxygen bronchodilators and low dose intravenous Solu-Medrol Assessment: 57-year-old male admitted with acute on chronic respiratory failure CO2 narcosis. Current hypercapnic is pretty failure Morbid obesity, and also associated cor pulmonale with pulmonary hypertension about 50-60 mmHg Patient will need BiPAP. Portable ventilator. Oxygen. Diuretics. Will also benefit having surgical intervention for obesity. In the past patient had a LAP-BAND. Will continue the current treatment and will follow the patient Objective - Vital Signs/Intake and Output Vital Signs (last 24 hours): Temp Pulse Resp BP Pulse Ox 98.2 F 51 L 23 166/80 H 94 L 12/24/17 16:00 12/24/17 16:00 12/24/17 16:00 12/24/17 16:00 12/24/17 16:00 Intake and Output: 12/24/17 12/24/17 06:59 18:59 Intake Total 260 Output Total 800 Balance -540 - Medications Medications: Current Medications Albuterol/Ipratropium (Duoneb 3 Mg/0.5 Mg (3 Ml) Ud) 3 ml INH RQ6 [facility] Last Admin: 12/23/17 19:30 Dose: 3 ml Albuterol/Ipratropium (Duoneb 3 Mg/0.5 Mg (3 Ml) Ud) 3 ml INH RQ6 [facility] Last Admin: 12/24/17 01:37 Dose: 3 ml Dabigatran (Pradaxa) 150 mg PO BID [facility] Last Admin: 12/24/17 10:25 Dose: 150 mg Famotidine (Pepcid) 20 mg PO DAILY [facility] Last Admin: 12/24/17 10:25 Dose: 20 mg Fluticasone/Vilanterol (Breo Ellipta 200-25 Mcg Inh) 1 puff INH RQD [facility] Furosemide (Lasix) 20 mg IVP DAILY [facility] Moxifloxacin HCl (Avelox Iv 400mg/250ml Ns) 400 mg in 250 mls @ 167 mls/hr IVPB Q24H [facility]; Protocol Last Admin: 12/23/17 21:08 Dose: 167 mls/hr Methylprednisolone (Solu-Medrol) 40 mg IVP DAILY [facility] Last Admin: 12/24/17 10:24 Dose: 40 mg Tiotropium [place] (Spiriva) 18 mcg INH RQ24 [facility] - Labs Labs: 12/23/17 06:36 12/23/17 08:06
--- NOTE | 2017-12-24 18:03 | CP.PCM.PN ---
Subjective - Date & Time of Evaluation Date of Evaluation: 12/23/17 Time of Evaluation: 18:03 - Subjective Subjective: Patient with a history of hypertension, bronchial asthma, morbid obesity history of suspected perming embolism in the past, on anticoagulation on home oxygen, being seen by department operations manager, transmission supervisor in the past admitted with wo rsening shortness of breath, and also CO2 narcosis, acute on chronic hypercapnic respiratory failure. Patient is currently more awake and responding. He is on BiPAP on and off. He is alert today. He is easily sleeping otherwise. But waking up easily. On examination: Bilateral chest air entry good noted Regular heart sound Pedal edema noted No recent labs today Current medications reviewed On antegrade ablation. We'll start the patient again on Lasix IV in tomorrow Continue the oxygen bronchodilators and low dose intravenous Solu-Medrol Assessment: 57-year-old male admitted with acute on chronic respiratory failure CO2 narcosis. Current hypercapnic is pretty failure Morbid obesity, and also associated cor pulmonale with pulmonary hypertension about 50-60 mmHg Patient will need BiPAP. Portable ventilator. Oxygen. Diuretics. Will also benefit having surgical intervention for obesity. In the past patient had a LAP-BAND. Will continue the current treatment and will follow the patient Objective - Vital Signs/Intake and Output Vital Signs (last 24 hours): Temp Pulse Resp BP Pulse Ox 98.2 F 51 L 23 166/80 H 94 L 12/24/17 16:00 12/24/17 16:00 12/24/17 16:00 12/24/17 16:00 12/24/17 16:00 Intake and Output: 12/24/17 12/24/17 06:59 18:59 Intake Total 260 Output Total 800 Balance -540 - Medications Medications: Current Medications Albuterol/Ipratropium (Duoneb 3 Mg/0.5 Mg (3 Ml) Ud) 3 ml INH RQ6 [facility] Last Admin: 12/23/17 19:30 Dose: 3 ml Albuterol/Ipratropium (Duoneb 3 Mg/0.5 Mg (3 Ml) Ud) 3 ml INH RQ6 [facility] Last Admin: 12/24/17 01:37 Dose: 3 ml Dabigatran (Pradaxa) 150 mg PO BID [facility] Last Admin: 12/24/17 10:25 Dose: 150 mg Famotidine (Pepcid) 20 mg PO DAILY [facility] Last Admin: 12/24/17 10:25 Dose: 20 mg Fluticasone/Vilanterol (Breo Ellipta 200-25 Mcg Inh) 1 puff INH RQD [facility] Furosemide (Lasix) 20 mg IVP DAILY [facility] Moxifloxacin HCl (Avelox Iv 400mg/250ml Ns) 400 mg in 250 mls @ 167 mls/hr IVPB Q24H [facility]; Protocol Last Admin: 12/23/17 21:08 Dose: 167 mls/hr Methylprednisolone (Solu-Medrol) 40 mg IVP DAILY [facility] Last Admin: 12/24/17 10:24 Dose: 40 mg Tiotropium [place] (Spiriva) 18 mcg INH RQ24 [facility] - Labs Labs: 12/23/17 06:36 12/23/17 08:06
[2017-12-24] MEDS: Moxifloxacin IV 400mg/250ml NS 400 MG/250 ML BAG IVPB SCH (22:00)
[2017-12-25] MEDS: Albuterol-Ipratrop 3 mg / 0.5 (3 ml) UD INH SCH ×8 (04:17→19:42)
[2017-12-25 07:44] LABS: BASO % 0.2 % (0.0-2.0); HEMOGLOBIN 14.2 g/dL (12.0-18.0); LYMPH # 0.4 K/uL (1.0-4.3); LYMPH % 7.4 % (20.0-40.0); MEAN CELL VOLUME 81.5 fL (80.0-94.0); MEAN CORPUSCULAR HEMOGLOBIN 22.7 pg (27.0-31.0); MEAN CORPUSCULAR HGB CONC 27.8 g/dL (33.0-37.0); MEAN PLATELET VOLUME 9.6 fL (7.2-11.7); MONO # 0.3 K/uL (0.0-0.8); MONO % 4.5 % (0.0-10.0); NEUT % 87.9 % (50.0-75.0); NRBC % 0.6 % (0.0-2.0); PLATELET COUNT 94 K/uL (130-400); RBC 6.27 Mil/uL (4.40-5.90); RED CELL DISTRIBUTION WIDTH 23.7 % (11.5-14.5); WHITE BLOOD COUNT 5.7 K/uL (4.8-10.8)
[2017-12-25] MEDS: Fluticasone-Vilanterol 200/25mcg Diskus INH SCH (08:23)
[2017-12-25] MEDS: Tiotropium 18 mcg Cap For Inhalation INH SCH (08:24)
--- NOTE | 2017-12-25 08:41 | RAD ---
Date of service: 12/25/2017 HISTORY: Evaluate for pneumonia COMPARISON: 12/23/2017. FINDINGS: LUNGS: The lungs are clear. PLEURA: No significant pleural effusion identified, no pneumothorax apparent. CARDIOVASCULAR: Again seen is severe cardiomegaly. OSSEOUS STRUCTURES: No significant abnormalities. VISUALIZED UPPER ABDOMEN: Normal. OTHER FINDINGS: None. IMPRESSION: No acute findings. Severe cardiomegaly.
[2017-12-25 08:46] LABS: ALBUMIN 2.7 g/dL (3.5-5.0); ALT/SGPT 29 U/L (21-72); AST/SGOT 20 U/L (17-59); BLOOD UREA NITROGEN 32 mg/dL (9-20); GFR NON-AFRICAN AMERICAN > 60
[2017-12-25] MEDS: MethylPREDNISolone 40 mg Vial IVP SCH (09:29)
[2017-12-25 09:39] LABS: LYMPHOCYTE 2 % (20-40); MONOCYTE 3 % (0-10); NEUTROPHIL 95 % (50-75); TOTAL CELLS COUNTED 100
[2017-12-25 09:40] LABS: ANISOCYTOSIS SLIGHT; HYPOCHROMIC SLIGHT; PLATELET ESTIMATE SLIGHTLY DECREASED (NORMAL); POLYCHROMIC SLIGHT; TARGET CELLS SLIGHT
--- NOTE | 2017-12-25 19:12 | CP.PCM.PN ---
Subjective - Date & Time of Evaluation Date of Evaluation: 12/25/17 Time of Evaluation: 19:12 Objective - Vital Signs/Intake and Output Vital Signs (last 24 hours): Temp Pulse Resp BP Pulse Ox 98.2 F 60 20 122/69 91 L 12/25/17 16:44 12/25/17 16:44 12/25/17 16:44 12/25/17 16:44 12/25/17 16:44 Intake and Output: 12/25/17 12/26/17 18:59 06:59 Intake Total 450 Output Total 525 Balance -75 - Medications Medications: Current Medications Albuterol/Ipratropium (Duoneb 3 Mg/0.5 Mg (3 Ml) Ud) 3 ml INH RQ6 [facility] Last Admin: 12/25/17 13:10 Dose: Not Given Albuterol/Ipratropium (Duoneb 3 Mg/0.5 Mg (3 Ml) Ud) 3 ml INH RQ6 [facility] Last Admin: 12/25/17 13:11 Dose: 3 ml Dabigatran (Pradaxa) 150 mg PO BID [facility] Last Admin: 12/25/17 18:07 Dose: 150 mg Famotidine (Pepcid) 20 mg PO DAILY [facility] Last Admin: 12/25/17 09:29 Dose: 20 mg Fluticasone/Vilanterol (Breo Ellipta 200-25 Mcg Inh) 1 puff INH RQD [facility] Last Admin: 12/25/17 08:23 Dose: 1 puff Furosemide (Lasix) 20 mg IVP DAILY [facility] Last Admin: 12/25/17 09:28 Dose: 20 mg Moxifloxacin HCl (Avelox Iv 400mg/250ml Ns) 400 mg in 250 mls @ 167 mls/hr IVPB Q24H [facility]; Protocol Last Admin: 12/24/17 22:00 Dose: 167 mls/hr Methylprednisolone (Solu-Medrol) 40 mg IVP DAILY [facility] Last Admin: 12/25/17 09:29 Dose: 40 mg Tiotropium [place] (Spiriva) 18 mcg INH RQ24 [facility] Last Admin: 12/25/17 08:24 Dose: 18 mcg - Labs Labs: 12/25/17 07:21 12/25/17 07:21
[2017-12-25] MEDS: Moxifloxacin IV 400mg/250ml NS 400 MG/250 ML BAG IVPB SCH (20:47)
[2017-12-26] MEDS: Albuterol-Ipratrop 3 mg / 0.5 (3 ml) UD INH SCH ×7 (01:23→19:27)
[2017-12-26] MEDS: Fluticasone-Vilanterol 200/25mcg Diskus INH SCH (09:19)
[2017-12-26] MEDS: Tiotropium 18 mcg Cap For Inhalation INH SCH ×2 (09:21→09:22)
[2017-12-26] MEDS: MethylPREDNISolone 40 mg Vial IVP SCH ×2 (10:35→21:49)
--- NOTE | 2017-12-26 20:07 | CP.PCM.PN ---
Subjective - Date & Time of Evaluation Date of Evaluation: 12/26/17 Time of Evaluation: 20:05 - Subjective Subjective: pt is more active feels better no cough leg swelling better rt leg ulcer noted dressed making urine using bipap will check labs and abg in am PT OB to chair pt had dizziness and blurred vision short time this am will get CT head now feeling ok Objective - Vital Signs/Intake and Output Vital Signs (last 24 hours): Temp Pulse Resp BP Pulse Ox 98.3 F 58 L 20 108/64 96 12/26/17 15:00 12/26/17 16:00 12/26/17 15:00 12/26/17 15:00 12/26/17 15:00 Intake and Output: 12/26/17 12/27/17 18:59 06:59 Intake Total 600 Output Total 4000 Balance -3400 - Medications Medications: Current Medications Albuterol/Ipratropium (Duoneb 3 Mg/0.5 Mg (3 Ml) Ud) 3 ml INH RQ6 [facility] Last Admin: 12/26/17 19:27 Dose: 3 ml Dabigatran (Pradaxa) 150 mg PO BID [facility] Last Admin: 12/26/17 18:59 Dose: 150 mg Famotidine (Pepcid) 20 mg PO DAILY [facility] Last Admin: 12/26/17 10:35 Dose: 20 mg Fluticasone/Vilanterol (Breo Ellipta 200-25 Mcg Inh) 1 puff INH RQD [facility] Last Admin: 12/26/17 09:19 Dose: 1 puff Furosemide (Lasix) 20 mg IVP DAILY [facility] Last Admin: 12/26/17 10:34 Dose: 20 mg Methylprednisolone (Solu-Medrol) 20 mg IVP DAILY [facility] Moxifloxacin HCl (Avelox) 400 mg PO Q24H [facility] Stop: 12/27/17 21:01 Tiotropium [place] (Spiriva) 18 mcg INH RQ24 [facility] Last Admin: 12/26/17 09:22 Dose: 18 mcg - Labs Labs: 12/25/17 07:21 12/25/17 07:21
[2017-12-27] MEDS: Albuterol-Ipratrop 3 mg / 0.5 (3 ml) UD INH SCH ×4 (02:56→19:35)
[2017-12-27 07:12] LABS: BASO % 0.3 % (0.0-2.0); HEMOGLOBIN 15.2 g/dL (12.0-18.0); LYMPH # 0.3 K/uL (1.0-4.3); LYMPH % 4.4 % (20.0-40.0); MEAN CELL VOLUME 80.7 fL (80.0-94.0); MEAN CORPUSCULAR HEMOGLOBIN 22.8 pg (27.0-31.0); MEAN CORPUSCULAR HGB CONC 28.3 g/dL (33.0-37.0); MEAN PLATELET VOLUME 9.9 fL (7.2-11.7); MONO # 0.2 K/uL (0.0-0.8); MONO % 3.1 % (0.0-10.0); NEUT % 92.2 % (50.0-75.0); PLATELET COUNT 79 K/uL (130-400); RBC 6.65 Mil/uL (4.40-5.90); RED CELL DISTRIBUTION WIDTH 22.8 % (11.5-14.5); WHITE BLOOD COUNT 6.5 K/uL (4.8-10.8)
[2017-12-27] MEDS: Tiotropium 18 mcg Cap For Inhalation INH SCH (08:10)
[2017-12-27] MEDS: Fluticasone-Vilanterol 200/25mcg Diskus INH SCH (08:10)
[2017-12-27 08:23] LABS: ERYTHROCYTE SEDIMENTATION RATE 1 mm/hr (0-15); LYMPHOCYTE 2 % (20-40); MONOCYTE 2 % (0-10); NEUTROPHIL 96 % (50-75); TOTAL CELLS COUNTED 100
[2017-12-27 08:24] LABS: ALB/GLOB RATIO 1.1 (1.0-2.1); ALBUMIN 3.1 g/dL (3.5-5.0); ALT/SGPT 38 U/L (21-72); ANISOCYTOSIS SLIGHT; AST/SGOT 26 U/L (17-59); BLOOD UREA NITROGEN 27 mg/dL (9-20); CALCIUM 8.6 mg/dl (8.6-10.4); GFR NON-AFRICAN AMERICAN > 60; PLATELET ESTIMATE DECREASED (NORMAL); TARGET CELLS SLIGHT
[2017-12-27 08:25] LABS: HYPOCHROMIC SLIGHT; OVALOCYTES SLIGHT; POLYCHROMIC SLIGHT
[2017-12-27 08:47] LABS: COMPLEMENT C4 22.7 mg/dL (14.0-44.0)
[2017-12-27] MEDS: MethylPREDNISolone 40 mg Vial IVP SCH (09:38)
--- NOTE | 2017-12-27 10:16 | CP.PCM.PN ---
Subjective - Date & Time of Evaluation Date of Evaluation: 12/27/17 Time of Evaluation: 10:14 - Subjective Subjective: PATIENT SEEN TODAY / DENIES CHEST PAIN C/O OF SOB ON MINIMAL EXERTION Objective - Vital Signs/Intake and Output Vital Signs (last 24 hours): Temp Pulse Resp BP Pulse Ox 97.9 F 60 20 130/70 98 12/27/17 07:51 12/27/17 07:51 12/27/17 07:51 12/27/17 09:35 12/27/17 07:51 Intake and Output: 12/27/17 12/27/17 06:59 18:59 Output Total 1000 Balance -1000 - Medications Medications: Current Medications Albuterol/Ipratropium (Duoneb 3 Mg/0.5 Mg (3 Ml) Ud) 3 ml INH RQ6 [facility] Last Admin: 12/27/17 08:10 Dose: 3 ml Dabigatran (Pradaxa) 150 mg PO BID [facility] Last Admin: 12/27/17 09:35 Dose: 150 mg Famotidine (Pepcid) 20 mg PO DAILY [facility] Last Admin: 12/27/17 09:35 Dose: 20 mg Fluticasone/Vilanterol (Breo Ellipta 200-25 Mcg Inh) 1 puff INH RQD [facility] Last Admin: 12/27/17 08:10 Dose: 1 puff Furosemide (Lasix) 20 mg IVP DAILY [facility] Last Admin: 12/27/17 09:35 Dose: 20 mg Methylprednisolone (Solu-Medrol) 20 mg IVP DAILY [facility] Last Admin: 12/27/17 09:38 Dose: 20 mg Moxifloxacin HCl (Avelox) 400 mg PO Q24H [facility] Stop: 12/27/17 21:01 Last Admin: 12/26/17 21:50 Dose: 400 mg Tiotropium [place] (Spiriva) 18 mcg INH RQ24 [facility] Last Admin: 12/27/17 08:10 Dose: 18 mcg - Labs Labs: 12/27/17 07:04 12/27/17 07:04 - Constitutional Appears: Well - Respiratory Exam Respiratory Exam: Decreased Breath Sounds Additional comments: MILD RESP DISTRESS Assessment and Plan - Assessment and Plan (Free Text) Assessment: PATIENT HAS CHRONIC RESP FAILURE DUE TO SEVERE COPD PATIENT HAS BEEN HAVING TROUBLE TOLERATING THE BIPAP COMPLAINS OF SYMPTOMS PARALLEL TO BREATHING STACKING. PLAN IS TO D/C THE USE OF BIPAP IT HAS BEEN PROVEN INSUFFICIENT AND ORDER NON-INVASIVE VENTILATION TO TARGET VOLUME CONTROL AND REDUCE THE ELEVATED PCO2 LEVELS THAT THE PATIENT HAS BEEN EXPERIENCING ON BIPAP. WITHOUT NON- INVASIVE VENTILATION THE PATIENT MIGHT ENDURE ADDITIONAL HOSPITAL ADMISSIONS ON EVEN A LIFE THREATING EVENT. PLAN HAS BEEN DISCUSSED WITH PATIENT
--- NOTE | 2017-12-27 10:22 | CT ---
Date of service: 12/27/2017 PROCEDURE: CT HEAD WITHOUT CONTRAST. HISTORY: blurred vision COMPARISON: None available. TECHNIQUE: Axial computed tomography images were obtained through the head/brain without intravenous contrast. Radiation dose: Total exam DLP = 1295.45 mGy-cm. This CT exam was performed using one or more of the following dose reduction techniques: Automated exposure control, adjustment of the mA and/or kV according to patient size, and/or use of iterative reconstruction technique. FINDINGS: HEMORRHAGE: No intracranial hemorrhage. BRAIN: No mass effect or edema. No atrophy. Mild chronic periventricular and patchy deep/subcortical white matter lucency consistent with microvascular ischemic change. VENTRICLES: Unremarkable. No hydrocephalus. CALVARIUM: Unremarkable. PARANASAL SINUSES: Unremarkable as visualized. No significant inflammatory changes. MASTOID AIR CELLS: Unremarkable as visualized. No inflammatory changes. OTHER FINDINGS: None. IMPRESSION: No intracranial mass, hemorrhage or evidence of acute infarct. Mild chronic white matter ischemic change.
--- NOTE | 2017-12-27 19:44 | CP.PCM.PN ---
Subjective - Date & Time of Evaluation Date of Evaluation: 12/27/17 Time of Evaluation: 19:42 - Subjective Subjective: pt has epistaxis this am feels ok comfortable eating better cough noted no fever today 12/27/17 07:04 12/27/17 07:04 Temp Pulse Resp BP Pulse Ox 98.2 F 63 20 116/70 94 L 12/27/17 16:00 12/27/17 18:00 12/27/17 16:00 12/27/17 16:00 12/27/17 16:00 chest good air entry regular hs on anticoagulation will d/c avelox low platlets get hematology eval add folic acid pt with severe pulmonary HTN corpulmonale CO2 retention acute on chronic respiratory failure add lasix po Objective - Vital Signs/Intake and Output Vital Signs (last 24 hours): Temp Pulse Resp BP Pulse Ox 98.2 F 63 20 116/70 94 L 12/27/17 16:00 12/27/17 18:00 12/27/17 16:00 12/27/17 16:00 12/27/17 16:00 Intake and Output: 12/27/17 12/28/17 18:59 06:59 Output Total 1600 Balance -1600 - Medications Medications: Current Medications Albuterol/Ipratropium (Duoneb 3 Mg/0.5 Mg (3 Ml) Ud) 3 ml INH RQ6 [facility] Last Admin: 12/27/17 19:35 Dose: 3 ml Dabigatran (Pradaxa) 150 mg PO BID [facility] Last Admin: 12/27/17 17:27 Dose: 150 mg Famotidine (Pepcid) 20 mg PO DAILY [facility] Last Admin: 12/27/17 09:35 Dose: 20 mg Fluticasone/Vilanterol (Breo Ellipta 200-25 Mcg Inh) 1 puff INH RQD [facility] Last Admin: 12/27/17 08:10 Dose: 1 puff Furosemide (Lasix) 20 mg PO DAILY [facility] Methylprednisolone (Solu-Medrol) 20 mg IVP DAILY [facility] Last Admin: 12/27/17 09:38 Dose: 20 mg Tiotropium [place] (Spiriva) 18 mcg INH RQ24 [facility] Last Admin: 12/27/17 08:10 Dose: 18 mcg - Labs Labs: 12/27/17 07:04 12/27/17 07:04
[2017-12-28] MEDS: Albuterol-Ipratrop 3 mg / 0.5 (3 ml) UD INH SCH ×4 (02:51→19:28)
[2017-12-28] MEDS: MethylPREDNISolone 40 mg Vial IVP SCH (10:18)
[2017-12-28] MEDS: Tiotropium 18 mcg Cap For Inhalation INH SCH (10:24)
[2017-12-28] MEDS: Fluticasone-Vilanterol 200/25mcg Diskus INH SCH (10:24)
--- NOTE | 2017-12-28 13:19 | CP.PCM.CON ---
History of Present Illness - History of Present Illness History of Present Illness: 57 year old male with a history of morbid obesity, asthma, HTN, PT on anticoagulation, admitted with progressive cough and shortness of breath likely secondary to asthma exacerbation and hypercapnic respiratory failure, with thrombocytopenia. The patient notes to being told he had low platelets in 2014. He denies abnormal bleeding and bruising. Review of his blood work reveals a current platelet elizabeth of 79,000. He denies drinking alcohol. Past medical history: PE, HTN, asthma, morbid obesity Past surgical history: Lap band Family history: Mother had PE and father had stroke Social history: Denies tobacco, alcohol, and illicit drug use. Allergies: Penicillins Review of systems: All remaining review of systems including HEENT, cardiovascular, respiratory, gastrointestinal, genitourinary, musculoskeletal, dermatologic, neurologic, and psychiatric are negative unless mentioned in the HPI. Past Patient History - Past Medical History & Family History Past Medical History?: Yes - Past Social History Smoking Status: Unknown If Ever Smoked - CARDIAC Hx Cardiac Disorders: Yes Hx Congestive Heart Failure: Yes Hx Hypertension: Yes - PULMONARY Hx Chronic Obstructive Pulmonary Disease (COPD): Yes - NEUROLOGICAL HX Cerebrovascular Accident: No - HEENT Hx HEENT Problems: No Hx Blind: No Hx Cataracts: No Hx Deafness: No Hx Difficulty Chewing: No Hx Epistaxis: No Hx Glaucoma: No Hx Macular Degeneration: No Hx Sinusitis: No - RENAL Hx Renal Failure: No - ENDOCRINE/METABOLIC Hx Diabetes Mellitus Type 1: No Hx Diabetes Mellitus Type 2: No Hx Hypothyroidism: No - HEMATOLOGICAL/ONCOLOGICAL Hx Blood Disorders: No Hx AIDS: No Hx Anemia: No Hx Blood Transfusions: No Hx Blood Transfusion Reaction: No Hx Bruising: No Hx Cancer: No Hx Chemotherapy: No Hx Cirrhosis: No Hx Gum Bleeding: No Hx Hemophilia: No Hx Hepatitis A: No Hx Hepatitis B: No Hx Hepatitis C: No Hx Human Immunodeficiency Virus (HIV): No Hx Leukemia: No Hx Metastesis: No Hx Shingles: No Hx Sickle Cell Disease: No Hx Unexplained Bleeding: No Hx von Willebrand's Disease: No - INTEGUMENTARY Hx Dermatological Problems: No Hx Basil Cell: No Hx Moraes: No Hx Cellulitis: No Hx Eczema: No Hx Melanoma: No Hx Psoriasis: No Hx Squamous Cell: No - MUSCULOSKELETAL/RHEUMATOLOGICAL Hx Arthritis: No Hx Rheumatoid Arthritis: No - GASTROINTESTINAL Hx Gastrointestinal Disorders: Yes Hx Bowel Surgery: No Hx Clostridium Difficile: No Hx Colitis: No Hx Colostomy: No Hx Constipation: No Hx Crohn's Disease: No Hx Diarrhea: No Hx Diverticulitis: No Hx Esophageal Varices: No Hx Fatty Liver Disease: No Hx Gall Bladder Disease: No Hx Gastritis: Yes Hx Gastroesophageal Reflux: No Hx Hemorrhoids: No Hx Ileostomy: No Hx Irritable Bowel: No Hx Liver Failure: No Hx Nausea: No Hx Pancreatitis: No HX Swallowing Problems: No Hx Ulcer: No Hx Vomiting: No Other/Comment: Colonic polyps, unsuccessful banding procedure, hiatal hernia - GENITOURINARY/GYNECOLOGICAL Hx Genitourinary Disorders: No Hx Bladder Cancer: No Hx Bladder Stone: No Hx Hematuria: No Hx Incontinence: No Hx Prostate Cancer: No Hx Prostate Problems: No Hx Reproductive Disorders: No Hx Sexually Transmitted Disorders: No Hx Urinary Tract Infection: No - PSYCHIATRIC Hx Psychophysiologic Disorder: No Hx Anxiety: No Hx Bipolar Disorder: No Hx Depression: No Hx Emotional Abuse: No Hx Hallucinations: No Hx Panic Symptoms: No Hx Paranoia: No Hx Post Traumatic Stress Disorder: No Hx Psychosis: No Hx Physical Abuse: No Hx Schizophrenia: No Hx Sexual Abuse: No Hx Substance Use: No - SURGICAL HISTORY Hx Surgeries: Yes Hx Abdominal Aortic Aneurysm Repair: No Hx Amputation: No Hx Angiogram: No Hx Angioplasty: No Hx Appendectomy: No Hx Arteriovenous Shunt: No Hx Arthroscopy: No Hx Bile Duct Stent: No Hx Breast Biopsy: No Hx Cataract Extraction: No Hx Cardiac Catheterization: Yes Hx Carotid Endarterectomy: No Hx Section: No Hx Cholecystectomy: No Hx Coronary Artery Bypass Graft: No Hx Dilation and Curettage: No Hx Eye Surgery: No Hx Femoral-Popliteal Bypass Graft: No Hx Gastric Bypass Surgery: Yes (UNSUCCESSFUL BANDING) Hx Herniorrhaphy: No Hx Hysterectomy: No Hx Joint Replacement: No Hx Kidney Transplant: No Hx Liver Transplant: No Hx Mastectomy: No Hx Musculoskeletal Surgery: No Hx Open Heart Surgery: No Hx Open Reduction Internal Fixation: No Hx Orthopedic Surgery: No Hx Parathyroidectomy: No Hx Penile Implant: No Hx Pulmonary Surgery: No Hx Splenectomy: No Hx Thyroidectomy: No Hx Tonsillectomy: No Hx Tubal Ligation: No Hx Valve Replacement: No Hx Vascular Surgery: No Hx Vascular Access Device: No - ANESTHESIA Hx Anesthesia: Yes Hx Anesthesia Reactions: No Hx Malignant Hyperthermia: No Meds Allergies/Adverse Reactions: Allergies Allergy/AdvReac Type Severity Reaction Status Date / Time Penicillins Allergy URTICARIA Verified 12/20/17 14:06 - Medications Medications: Current Medications Albuterol/Ipratropium (Duoneb 3 Mg/0.5 Mg (3 Ml) Ud) 3 ml INH RQ6 [facility] Last Admin: 12/28/17 13:08 Dose: 3 ml Dabigatran (Pradaxa) 150 mg PO BID [facility] Last Admin: 12/28/17 10:18 Dose: 150 mg Famotidine (Pepcid) 20 mg PO DAILY [facility] Last Admin: 12/28/17 10:17 Dose: 20 mg Fluticasone/Vilanterol (Breo Ellipta 200-25 Mcg Inh) 1 puff INH RQD [facility] Last Admin: 12/28/17 10:24 Dose: 1 puff Furosemide (Lasix) 20 mg PO DAILY [facility] Last Admin: 12/28/17 10:18 Dose: 20 mg Methylprednisolone (Solu-Medrol) 20 mg IVP DAILY [facility] Last Admin: 12/28/17 10:18 Dose: 20 mg Tiotropium [place] (Spiriva) 18 mcg INH RQ24 [facility] Last Admin: 12/28/17 10:24 Dose: 18 mcg Physical Exam - Head Exam Head Exam: ATRAUMATIC - Eye Exam Eye Exam: Normal appearance - ENT Exam ENT Exam: Mucous Membranes Dry - Respiratory Exam Respiratory Exam: NORMAL BREATHING PATTERN - Cardiovascular Exam Cardiovascular Exam: +S1, +S2 - GI/Abdominal Exam GI & Abdominal Exam: Normal Bowel Sounds - Extremities Exam Extremities exam: Positive for: pedal edema - Neurological Exam Neurological exam: Oriented x3 - Psychiatric Exam Psychiatric exam: Normal Affect, Normal Mood - Skin Skin Exam: Warm Results - Vital Signs Recent Vital Signs: Last Vital Signs Temp 97.3 F L 12/28/17 08:00 Pulse 56 L 12/28/17 11:37 Resp 20 12/28/17 08:00 BP 131/82 12/28/17 10:18 Pulse Ox 95 12/28/17 08:00 - Labs Result Diagrams: 12/27/17 07:04 12/27/17 07:04 Assessment & Plan (1) Thrombocytopenia Assessment and Plan: chronic ? ITP ? medication okay to continue therapeutic anticoagulation unless plt < 50,000 will check HIV and hepatitis panel Thank you for this interesting consult. Status: Acute
[2017-12-28 16:32] VITALS: RESP 20
--- NOTE | 2017-12-28 17:51 | CP.PCM.PN ---
Subjective - Date & Time of Evaluation Date of Evaluation: 12/28/17 Time of Evaluation: 17:48 - Subjective Subjective: Patient is having increasing pain in the legs patient is feeling otherwise well. He is able to stand up and walk with help. He is using oxygen, also using BiPAP at night. Denies any chest pain, minimal as will be minimal shortness of breath noted. Patient is otherwise more awake and responding eating well urine output is better Repeat CBC currently pending, platelet count is on the low side, will closely monitor again. In my opinion if the CBC stable, and a platelets are better patient can be discharged home. Meanwhile will continue the physical therapy Objective - Vital Signs/Intake and Output Vital Signs (last 24 hours): Temp Pulse Resp BP Pulse Ox 98.2 F 59 L 20 112/56 L 95 12/28/17 16:00 12/28/17 16:00 12/28/17 16:00 12/28/17 16:00 12/28/17 16:00 Intake and Output: 12/28/17 12/28/17 06:59 18:59 Output Total 1000 Balance -1000 - Medications Medications: Current Medications Albuterol/Ipratropium (Duoneb 3 Mg/0.5 Mg (3 Ml) Ud) 3 ml INH RQ6 [facility] Last Admin: 12/28/17 13:08 Dose: 3 ml Dabigatran (Pradaxa) 150 mg PO BID [facility] Last Admin: 12/28/17 17:22 Dose: 150 mg Famotidine (Pepcid) 20 mg PO DAILY [facility] Last Admin: 12/28/17 10:17 Dose: 20 mg Fluticasone/Vilanterol (Breo Ellipta 200-25 Mcg Inh) 1 puff INH RQD [facility] Last Admin: 12/28/17 10:24 Dose: 1 puff Furosemide (Lasix) 20 mg PO DAILY [facility] Last Admin: 12/28/17 10:18 Dose: 20 mg Methylprednisolone (Solu-Medrol) 20 mg IVP DAILY [facility] Last Admin: 12/28/17 10:18 Dose: 20 mg Tiotropium [place] (Spiriva) 18 mcg INH RQ24 [facility] Last Admin: 12/28/17 10:24 Dose: 18 mcg - Labs Labs: 12/27/17 07:04 12/27/17 07:04
[2017-12-28 23:22] LABS: ALB/GLOB RATIO 1.1 (1.0-2.1); ALBUMIN 3.2 g/dL (3.5-5.0); ALT/SGPT 39 U/L (21-72); AST/SGOT 43 U/L (17-59); BASO # 0.1 K/uL (0.0-0.2); BLOOD UREA NITROGEN 35 mg/dL (9-20); CALCIUM 8.4 mg/dl (8.6-10.4); EOS % 0.1 % (0.0-4.0); GFR NON-AFRICAN AMERICAN > 60; HEMOGLOBIN 14.6 g/dL (12.0-18.0); LYMPH # 0.4 K/uL (1.0-4.3); LYMPH % 3.6 % (20.0-40.0); MEAN CELL VOLUME 80.5 fL (80.0-94.0); MEAN CORPUSCULAR HEMOGLOBIN 23.1 pg (27.0-31.0); MEAN CORPUSCULAR HGB CONC 28.7 g/dL (33.0-37.0); MEAN PLATELET VOLUME 9.6 fL (7.2-11.7); MONO # 0.5 K/uL (0.0-0.8); MONO % 5.1 % (0.0-10.0); NEUT # 9.3 K/uL (1.8-7.0); NEUT % 90.2 % (50.0-75.0); NRBC % 0.1 % (0.0-2.0); RBC 6.32 Mil/uL (4.40-5.90); RED CELL DISTRIBUTION WIDTH 23.4 % (11.5-14.5); WHITE BLOOD COUNT 10.3 K/uL (4.8-10.8)
[2017-12-28 23:25] LABS: PLATELET COUNT 73 K/uL (130-400)
[2017-12-29] MEDS: Albuterol-Ipratrop 3 mg / 0.5 (3 ml) UD INH SCH ×4 (01:11→20:09)
[2017-12-29 03:47] LABS: LYMPHOCYTE 4 % (20-40); MONOCYTE 6 % (0-10); NEUTROPHIL 89 % (50-75); PLATELET ESTIMATE DECREASED (NORMAL); REACTIVE LYMPHOCYTES 1 % (0-0); TOTAL CELLS COUNTED 100
[2017-12-29 03:48] LABS: ANISOCYTOSIS MODERATE; OVALOCYTES SLIGHT; TOXIC GRANULATION PRESENT
[2017-12-29 03:50] LABS: TARGET CELLS SLIGHT
[2017-12-29] MEDS ORDERED: Sod Polystyrene Sulf 15 gm/60 ml Susp PO ONE (08:00)
[2017-12-29 08:39] LABS: HEPATITIS B SURFACE AG Negative (NEGATIVE)
[2017-12-29 08:45] LABS: HEPATITIS A IGM NEGATIVE (NEGATIVE); HEPATITIS B CORE AB NEGATIVE (NEGATIVE)
[2017-12-29 08:57] LABS: HEPATITIS C ANTIBODY NEGATIVE (NEGATIVE)
[2017-12-29] MEDS: MethylPREDNISolone 40 mg Vial IVP SCH (09:59)
[2017-12-29] MEDS: Tiotropium 18 mcg Cap For Inhalation INH SCH (10:52)
[2017-12-29] MEDS: Fluticasone-Vilanterol 200/25mcg Diskus INH SCH (10:52)
--- NOTE | 2017-12-29 13:32 | CP.PCM.PN ---
Subjective - Date & Time of Evaluation Date of Evaluation: 12/29/17 Time of Evaluation: 13:32 - Subjective Subjective: PATIENT SEEN AND EXAMINED AT THE BEDSIDE Objective - Vital Signs/Intake and Output Vital Signs (last 24 hours): Temp Pulse Resp BP Pulse Ox 98.3 F 55 L 20 111/69 94 L 12/29/17 07:00 12/29/17 09:58 12/29/17 07:00 12/29/17 09:59 12/29/17 07:00 Intake and Output: 12/29/17 12/29/17 06:59 18:59 Intake Total 400 Output Total 1850 Balance -1450 - Medications Medications: Current Medications Albuterol/Ipratropium (Duoneb 3 Mg/0.5 Mg (3 Ml) Ud) 3 ml INH RQ6 [facility] Last Admin: 12/29/17 13:22 Dose: 3 ml Dabigatran (Pradaxa) 150 mg PO BID [facility] Last Admin: 12/29/17 09:58 Dose: 150 mg Famotidine (Pepcid) 20 mg PO DAILY [facility] Last Admin: 12/29/17 09:58 Dose: 20 mg Fluticasone/Vilanterol (Breo Ellipta 200-25 Mcg Inh) 1 puff INH RQD [facility] Last Admin: 12/29/17 10:52 Dose: Not Given Furosemide (Lasix) 20 mg PO DAILY [facility] Last Admin: 12/29/17 09:59 Dose: 20 mg Methylprednisolone (Solu-Medrol) 20 mg IVP DAILY [facility] Last Admin: 12/29/17 09:59 Dose: 20 mg Tiotropium [place] (Spiriva) 18 mcg INH RQ24 [facility] Last Admin: 12/29/17 10:52 Dose: Not Given - Labs Labs: 12/28/17 23:05 12/28/17 23:05 Assessment and Plan - Assessment and Plan (Free Text) Assessment: FOLLOW UP WITH DR PEREZ IN HIS OFFICE IN A WEEK -----CALL FOR APPOINTMENT ADDRESS YOUR BLOOD WORK AT YOUR VISIT FOLLOW UP DR SOOD IN HIS OFFICE ---CALL FOR APPOINTMENT CONTINUE HOME MEDICATION ACTIVITY TOLERATED WOUND CARE ORDER CLEANSE WELL USING MOISTENED 4X4 TO RUB AWAY ANY EXUDATE, THEN APPLY MEDIHONEY AND COVER WITH FOAM DRESSING AND CHANGE EVERY OTHER DAY MUST KEEP LEG ELEVATED WHILE IN BED HOME OXYGEN PROVIDER CALL DR PEREZ OR GO TO THE EMERGENCY ROOM IF SYMPTOM RETURN OR WORSENING
[2017-12-29 14:32] LABS: ALB/GLOB RATIO 1.2 (1.0-2.1); ALBUMIN 3.3 g/dL (3.5-5.0); ALT/SGPT 53 U/L (21-72); AST/SGOT 36 U/L (17-59); BLOOD UREA NITROGEN 30 mg/dL (9-20); CALCIUM 8.8 mg/dl (8.6-10.4); GFR NON-AFRICAN AMERICAN > 60
[2017-12-29 15:26] LABS: MEAN CELL VOLUME 80.8 fL (80.0-94.0); MEAN CORPUSCULAR HEMOGLOBIN 22.4 pg (27.0-31.0); MEAN CORPUSCULAR HGB CONC 27.7 g/dL (33.0-37.0); MEAN PLATELET VOLUME 9.8 fL (7.2-11.7); RBC 6.07 Mil/uL (4.40-5.90)
[2017-12-29 15:30] LABS: HEMOGLOBIN 14.8 g/dL (12.0-18.0); WHITE BLOOD COUNT 9.2 K/uL (4.8-10.8)
[2017-12-29 16:14] VITALS: O2SAT 96
[2017-12-30 00:08] VITALS: BP 128/76; PULSE 117; TEMP 98
[2017-12-30] MEDS: Albuterol-Ipratrop 3 mg / 0.5 (3 ml) UD INH SCH (01:43)
--- NOTE | 2017-12-31 22:08 | CP.PCM.PN ---
Subjective - Date & Time of Evaluation Date of Evaluation: 12/29/17 Time of Evaluation: 10:00 - Subjective Subjective: No complaints. Objective - Vital Signs/Intake and Output Vital Signs (last 24 hours): Temp Pulse Resp BP Pulse Ox 98.0 F 117 H 20 128/76 96 12/30/17 00:00 12/30/17 00:00 12/30/17 00:00 12/30/17 00:00 12/30/17 00:00 - Labs Labs: 12/29/17 14:00 12/29/17 14:00 - Head Exam Head Exam: ATRAUMATIC - Eye Exam Eye Exam: Normal appearance - ENT Exam ENT Exam: Mucous Membranes Dry - Respiratory Exam Respiratory Exam: NORMAL BREATHING PATTERN - Cardiovascular Exam Cardiovascular Exam: +S1, +S2 - GI/Abdominal Exam GI & Abdominal Exam: Normal Bowel Sounds Assessment and Plan (1) Thrombocytopenia Assessment & Plan: chronic ? ITP ? medication okay to continue therapeutic anticoagulation unless plt < 50,000 Status: Acute
== END 2017-12-30 01:44 | disposition home health service (06) | DRG 189 ==
LOC: C.ER 13:41 → C.9E 18:14 → C.6T 19:59 → C.9E 22:01 → OBSVTOIN 22:55 → C.9I 22:56 → C.5S 12-24 06:19
PROVIDERS: ADMIT Internal Medicine; ATTEND Internal Medicine
DX: J96.20 Acute and chronic respiratory failure, unspecified whether with hypoxia or hypercapnia (principal); J44.0 Chronic obstructive pulmonary disease with (acute) lower respiratory infection; J18.9 Pneumonia, unspecified organism; J44.1 Chronic obstructive pulmonary disease with (acute) exacerbation; I11.9 Hypertensive heart disease without heart failure; L97.919 Non-pressure chronic ulcer of unspecified part of right lower leg with unspecified severity; D69.6 Thrombocytopenia, unspecified; I48.91 Unspecified atrial fibrillation; I27.81 Cor pulmonale (chronic); Z68.43 Body mass index [BMI] 50.0-59.9, adult; R04.0 Epistaxis; I27.29 Other secondary pulmonary hypertension; I25.10 Atherosclerotic heart disease of native coronary artery without angina pectoris; E66.2 Morbid (severe) obesity with alveolar hypoventilation; I87.2 Venous insufficiency (chronic) (peripheral); E66.9 Obesity, unspecified; Z86.711 Personal history of pulmonary embolism; Z99.81 Dependence on supplemental oxygen; K27.9 Peptic ulcer, site unspecified, unspecified as acute or chronic, without hemorrhage or perforation; G47.30 Sleep apnea, unspecified; Z71.3 Dietary counseling and surveillance; Z86.010 Personal history of colon polyps; Z79.01 Long term (current) use of anticoagulants; Z88.0 Allergy status to penicillin; Z98.84 Bariatric surgery status; Z82.3 Family history of stroke